=== PATIENT | male | born 1965 | race Caucasian/White ===

== ENCOUNTER → 2024-02-03 11:59 | Outpatient (REF) | payer OTHER, SELFPAY ==
[2024-02-03 13:36] LABS: Urine Albumin Negative (Neg - Trace); Urine Bilirubin Negative (Negative); Urine Character Clear (Clear); Urine Color Yellow; Urine Glucose Negative (Negative); Urine Ketone Negative (Negative); Urine Leukocyte Negative (Negative); Urine Nitrite Negative (Negative); Urine Occult Blood Negative (Negative); Urine Specific Gravity 1.015 (<1.030); Urine Urobilinogen Negative (Neg - 1+); Urine pH 6.5 (5.0-9.0)
[2024-02-03 13:40] LABS: % Basophils 0.4 % (0-2); % Eosinophils 1.1 % (0-6); % Immature Granulocytes 0.2 % (0-0.5); % Lymphocytes 42.8 % (20.5-51.1); % Monocytes 9.4 % (1.7-9.3); % Neutrophils 46.1 % (42.2-75.2); Absolute Eosinophils 0.1 10^3/uL (0-0.7); Absolute Monocytes 0.4 10^3/uL (0.1-0.6); Absolute Neutrophils 2.1 10^3/uL (1.4-6.5); Hematocrit 42.4 % (39.0-52.0); Hemoglobin 14.8 g/dL (13.0-18.0); Mean Corp Hgb Conc. 34.9 g/dL (33.0-37.0); Mean Corpuscular Hgb 31.9 pg (27.0-31.0); Mean Corpuscular Volume 91.4 fL (80.0-94.0); Mean Platelet Volume 9.5 fL (7.4-10.4); Nucleated Red Blood Cells % 0 % (-); Platelet Count 216 10^3/uL (130-400); Red Blood Cell Count 4.64 10^6/uL (4.70-6.10); Red Cell Dist. Width 11.9 % (11.5-14.5); White Blood Cell Count 4.6 10^3/uL (4.8-10.8)
[2024-02-03 14:11] LABS: ALT (SGPT) 22 U/L (0-50); AST (SGOT) 24 U/L (17-59); Albumin 4.5 g/dl (3.5-5.0); Alkaline Phosphatase 61 U/L (38-126); Blood Urea Nitrogen 18 mg/dl (9-20); Calcium 9.3 mg/dl (8.4-10.2); Carbon Dioxide 28 mmol/L (22-30); Chloride 100 mmol/L (98-107); Glucose 100 mg/dl (70-99); HDL Cholesterol 70 mg/dl; LDL Cholesterol, Calculated 99 mg/dl; Potassium 4.7 mmol/L (3.5-5.1); Sodium 140 mmol/L (135-145); Total Cholesterol 183 mg/dl (50-199); Triglyceride 71 mg/dl (10-149); Very Low Density Lipoprotein 14 mg/dl (0-30); eGFR > 60.00
[2024-02-03 14:25] LABS: Vitamin D, 25-OH*** 69.3 ng/mL (30-80)
[2024-02-03 14:38] LABS: PSA, Total - Screen 0.54 ng/ml (0.0-4.0)
== END ==
LOC: REG 11:59
PROVIDERS: ATTENDING PHYSICIAN Internal Medicine Geriatric Medicine
DX: Z00.00 Encounter for general adult medical examination without abnormal findings (principal); E04.1 Nontoxic single thyroid nodule; E78.2 Mixed hyperlipidemia; R00.2 Palpitations; G47.00 Insomnia, unspecified; E55.9 Vitamin D deficiency, unspecified; Z13.89 Encounter for screening for other disorder; Z23 Encounter for immunization
CPT/HCPCS: 36415; 80053; 80061; 81003; 82306; 83695; 85025; G0103

== ENCOUNTER → 2024-02-12 07:24 | Outpatient (REF) | payer SELFPAY | LOC: RAD 07:24 | PROVIDERS: ATTENDING PHYSICIAN Internal Medicine Geriatric Medicine | DX: Z00.00 Encounter for general adult medical examination without abnormal findings (principal); E04.1 Nontoxic single thyroid nodule; E78.2 Mixed hyperlipidemia; R00.2 Palpitations; G47.00 Insomnia, unspecified; E55.9 Vitamin D deficiency, unspecified; Z13.89 Encounter for screening for other disorder; Z23 Encounter for immunization | CPT/HCPCS: 75571 ==

== ENCOUNTER → 2024-08-10 10:24 | Outpatient (REF) | payer OTHER, SELFPAY ==
[2024-08-10 11:06] LABS: % Basophils 0.7 % (0-2); % Eosinophils 2.9 % (0-6); % Immature Granulocytes 0.2 % (0-0.5); % Monocytes 10.8 % (1.7-9.3); % Neutrophils 44.4 % (42.2-75.2); Absolute Eosinophils 0.1 10^3/uL (0-0.7); Absolute Lymphocytes 1.7 10^3/uL (1.2-3.4); Absolute Monocytes 0.5 10^3/uL (0.1-0.6); Absolute Neutrophils 1.9 10^3/uL (1.4-6.5); Hematocrit 43.7 % (39.0-52.0); Hemoglobin 15.3 g/dL (13.0-18.0); Mean Corpuscular Hgb 31.6 pg (27.0-31.0); Mean Corpuscular Volume 90.3 fL (80.0-94.0); Mean Platelet Volume 9.1 fL (7.4-10.4); Nucleated Red Blood Cells % 0 % (-); Platelet Count 201 10^3/uL (130-400); Red Blood Cell Count 4.84 10^6/uL (4.70-6.10); White Blood Cell Count 4.2 10^3/uL (4.8-10.8)
[2024-08-10 11:12] LABS: Erythrocyte Sed Rate 3 mm/hour (0-20)
[2024-08-10 11:13] LABS: Urine Albumin Negative (Neg - Trace); Urine Bilirubin Negative (Negative); Urine Character Clear (Clear); Urine Color Yellow; Urine Glucose Negative (Negative); Urine Ketone Negative (Negative); Urine Leukocyte Negative (Negative); Urine Nitrite Negative (Negative); Urine Occult Blood Negative (Negative); Urine Urobilinogen Negative (Neg - 1+)
[2024-08-10 11:58] LABS: ALT (SGPT) 22 U/L (0-50); AST (SGOT) 24 U/L (17-59); Albumin 4.4 g/dl (3.5-5.0); Alkaline Phosphatase 61 U/L (38-126); Blood Urea Nitrogen 16 mg/dl (9-20); Carbon Dioxide 29 mmol/L (22-30); Chloride 102 mmol/L (98-107); Glucose 108 mg/dl (70-99); Potassium 5.2 mmol/L (3.5-5.1); Sodium 140 mmol/L (135-145); Total Bilirubin 1.2 mg/dl (0.2-1.3); Total Protein 7.2 g/dl (6.3-8.2); eGFR > 60.00
[2024-08-10 12:00] LABS: C-Reactive Protein < 5.00 mg/L (0.0-10.00)
== END ==
LOC: REG 10:24
PROVIDERS: ATTENDING PHYSICIAN Nurse Practitioner Family; FAMILY PHYSICIAN Internal Medicine Geriatric Medicine
DX: R10.31 Right lower quadrant pain (principal); R59.9 Enlarged lymph nodes, unspecified; E78.2 Mixed hyperlipidemia
CPT/HCPCS: 36415; 80053; 81003; 85025; 85652; 86140

== ENCOUNTER → 2024-08-19 14:00 | Outpatient (REF) | payer OTHER, SELFPAY | LOC: RAD 14:00 | PROVIDERS: ATTENDING PHYSICIAN Nurse Practitioner Family; FAMILY PHYSICIAN Internal Medicine Geriatric Medicine | DX: R10.31 Right lower quadrant pain (principal); R59.9 Enlarged lymph nodes, unspecified; E78.2 Mixed hyperlipidemia | CPT/HCPCS: 74177; Q9967 ==